=== PATIENT | female | born 1985 | race Caucasian/White ===

== ENCOUNTER → 2019-08-02 | Outpatient (REF) | payer OTHER ==
[~2019-08-02] MED LIST: IBUP80TA PO; MAPA500T2 PO; STUACAP PO
[2019-08-02 13:19] LABS: FREE T4 1.09 NG/DL (0.76-1.46); THYROID STIMULATING HORMONE 1.01 uIU/ML (0.358-3.740)
== END ==
LOC: M SFHCLERA 10:13
PROVIDERS: ATTEND Nurse Practitioner Family
DX: F34.1 Dysthymic disorder (principal)

== ENCOUNTER → 2019-11-15 | Outpatient (REF) | payer OTHER ==
[2019-11-15 16:58] LABS: ALBUMIN 4.5 GM/DL (3.2-5.2); ALT/SGPT 31 U/L (12-78); BILIRUBIN,TOTAL 0.3 MG/DL (0.2-1.0); BLOOD UREA NITROGEN 11 MG/DL (7-18); CALCIUM LEVEL 9.2 MG/DL (8.5-10.1); CARBON DIOXIDE LEVEL 29 MEQ/L (21-32); CHLORIDE LEVEL 106 MEQ/L (98-107); CREATININE FOR GFR 0.88 MG/DL (0.55-1.30); GLOMERULAR FILTRATION RATE > 60.0 (>60); GLUCOSE, FASTING 87 MG/DL (70-100); POTASSIUM SERUM 4.2 MEQ/L (3.5-5.1); SODIUM LEVEL 139 MEQ/L (136-145); TOTAL PROTEIN 8.1 GM/DL (6.4-8.2)
== END ==
LOC: M SFHCLERA 11:26
PROVIDERS: ATTEND Nurse Practitioner Family
DX: L68.0 Hirsutism (principal)

== ENCOUNTER → 2020-05-31 | Outpatient (REF) | payer OTHER ==
[~2020-05-31] MED LIST changes: +AUGM875T28 PO; +IBUPROF; +SPIR100T3
== END ==
LOC: M LAB REF 12:25
PROVIDERS: ATTEND Physician Assistant
DX: R50.9 Fever, unspecified (principal)

== ENCOUNTER 2020-07-21 13:42 | Emergency (ER) | payer OTHER ==
[~2020-07-21] VITALS: Ht 165.1 cm; Wt 88.4 kg
[~2020-07-21 13:42] MED LIST changes: -AUGM875T28 PO; -IBUPROF; -SPIR100T3
[2020-07-21] MEDS ORDERED: IBUPROF (13:50)
[2020-07-21] MEDS ORDERED: SPIR100T3 (13:50)
[2020-07-21] MEDS ORDERED: KETOROLAC 60MG 2ML VIAL IM ONE (15:30)
[2020-07-21] MEDS ORDERED: LIDOCAINE 2% W/ EPINEPHRINE 1.7 ML DENTAL INJ SM ONE (15:30)
[2020-07-21] MEDS ORDERED: AUGM875T28 PO (15:43)
[2020-07-21 15:45] VITALS: BP 131/77
== END 2020-07-21 15:49 | disposition home or self-care (01) ==
LOC: M ED 13:42
DX: K08.89 Other specified disorders of teeth and supporting structures (principal)
CPT/HCPCS: 64400; 96372; 99283; J1885

== ENCOUNTER → 2022-05-03 | Outpatient (CLI) | payer OTHER ==
[~2022-05-03] MED LIST changes: +AUGM875T28 PO; +IBUPROF; +KETO10TAB; +LIDO5DIS41 TD; +METH-1165 PO; +PRED20TA PO; +SPIR100T3; +TIZA10TA
== END ==
LOC: M WUC 09:56
PROVIDERS: ATTEND Physician Assistant
DX: M25.512 Pain in left shoulder (principal)

== ENCOUNTER 2022-05-04 08:59 | Emergency (ER) | payer OTHER ==
[~2022-05-04] VITALS: Ht 165.1 cm; Wt 85.9 kg
[~2022-05-04 08:59] MED LIST changes: -KETO10TAB; -LIDO5DIS41 TD; -METH-1165 PO; -PRED20TA PO; -TIZA10TA
[2022-05-04] MEDS ORDERED: TIZA10TA (09:06)
[2022-05-04] MEDS ORDERED: KETO10TAB (09:06)
[2022-05-04] MEDS ORDERED: predniSONE 20 MG TAB PO ONE (11:45)
[2022-05-04] MEDS ORDERED: methocarbamoL 750 MG TAB PO ONE (11:45)
[2022-05-04] MEDS ORDERED: LIDOCAINE 5% (LIDODERM) PATCH TD ONE (11:45)
[2022-05-04] MEDS ORDERED: METH-1165 PO (12:50)
[2022-05-04] MEDS ORDERED: PRED20TA PO (12:50)
[2022-05-04] MEDS ORDERED: LIDO5DIS41 TD (12:50)
[2022-05-04 13:03] VITALS: BP 124/77
[2022-05-04] MEDS ORDERED: **NOTE PATIENT COMMENT** MISC XX SCH (21:00)
== END 2022-05-04 13:05 | disposition home or self-care (01) ==
LOC: M ED 08:59
DX: M54.12 Radiculopathy, cervical region (principal); F17.200 Nicotine dependence, unspecified, uncomplicated
CPT/HCPCS: 72125; 99283; J7512

== ENCOUNTER → 2022-05-18 | Outpatient (CLI) | payer OTHER ==
[~2022-05-18] MED LIST changes: +KETO10TAB; +LIDO5DIS41 TD; +METH-1165 PO; +PRED20TA PO; +TIZA10TA
== END ==
LOC: M PLAIMG 07:29
PROVIDERS: ATTEND Orthopaedic Surgery
DX: M54.12 Radiculopathy, cervical region (principal)